=== PATIENT | male | born 1960 | race Caucasian/White ===

== ENCOUNTER 2025-05-06 07:27 | Day surgery (SDC) | payer BC ==
[2025-05-05 11:28] LABS: IMMATURE GRANULOCYTE ABSOLUTE 0.02 K/uL (0-1); NUCLEATED RED BLOOD CELLS 0.0 % (0.0-0.19); PLATELET COUNT (AUTO) 234 K/uL (130-400); RED BLOOD CELL COUNT(AUTO) 4.70 MIL/uL (4.50-6.20); RED CELL DISTRIBUTION WIDTH 12.1 % (11.0-15.5); WHITE BLOOD COUNT (AUTO) 9.0 K/uL (4.8-10.8)
[2025-05-05 11:36] LABS: CREATININE 1.0 mg/dL (0.5-1.3); GLOMERULAR FILTR. RATE CALC 85.0 mL/min (>90); GLUCOSE,RANDOM 160.0 mg/dL (70-105); SODIUM SERUM 141.0 mmol/L (136-145); UREA NITROGEN, BLOOD 19.0 mg/dL (7-18)
[2025-05-05 11:38] VITALS: BP 133/81; PULSE 88; RESP 18; TEMP 98.2
[2025-05-05 11:40] LABS: INR 0.97 (0.85-1.15)
[2025-05-06] VITALS (7 sets, daily range): BP systolic 103–121; BP diastolic 69–81; PULSE 70–80; RESP 12–16; TEMP 97.3–97.5
[~2025-05-06] VITALS: Ht 185.4 cm; Wt 90.5 kg
[~2025-05-06 07:27] MED LIST: AEC81 PO; ATOR40TA71 PO
[2025-05-06] MEDS ORDERED: MIDAZOLAM HCL 1 MG/ML 2ML VIAL IVP ONE ×2 (07:30)
[2025-05-06] MEDS: LIDOCAINE HCL 2% VISCOUS 15 ML UDCUP PO ONE (09:05)
--- NOTE | 2025-05-06 09:22 | NUR ---
BUBBLE STUDY DONE
--- NOTE | 2025-05-06 09:23 | NUR ---
2ND BUBBLE STUDY DONE PER DR. ELENITA PAYNE NAD
--- NOTE | 2025-05-06 09:25 | NUR ---
CHEYENNE FINISHED AT THIS TIME VSS NAD
[2025-05-06] MEDS: 0.9%NACL 1000ML 1,000 ML IV SCH (09:39)
[2025-05-06] MEDS: MIDAZOLAM HCL 1 MG/ML 2ML VIAL IVP ONE ×3 (09:40→09:41)
--- NOTE | 2025-05-06 10:35 | NUR ---
PT TAKEN OUT VIA WHEELCHAIR VERBAL AND WRITTEN DISCHARGE INSTRUCTIONS GIVEN TO BOTH OUTSIDE AT [facility]. DRIVING HOME
--- NOTE | 2025-05-07 12:02 | HMCSR ---
APPROVED REPORT EXAM: Transesophageal echocardiogram with color flow Doppler. INDICATION ICD: G45.9 Transient cerebral ischemic attack, unspecified Reason For Test : Rule out Intracardiac Thrombus. PROCEDURE After obtaining informed consent, patient underwent transesophageal echo in the Day Patient Room 15. 15 mL 2% Viscous Lidocaine was given as a topical anesthetic prior to the administration of the consc ious sedation. Type of Sedation: Conscious Sedation Sedation was administered by Raúl Soliman RN. Sedation was achieved with refer to chart intravenously. Transesophageal probe was inserted and advanced into esophagus without difficulty by Dr. Johnson. Echo enhancement indication: R/O Septal defect. Echo enhancement agent administered: Agitated Saline. CHEYEN[place] was performed and images were obtained, probe was removed without complications. Throughout the procedure, the blood pressure, pulse oximetry, cardiac rhythm, and rate were monitored . The patient tolerated the procedure without adverse effects. Recovery from conscious sedation was une ventful and vital signs were stable. Left Ventricle The left ventricle is grossly normal size. There is normal LV segmental wall motion. There is normal left ventricular wall thickness. The left ventricle is normal in structure and function. The Ejection Fraction is >55%. No left ventricle thrombus noted on this study. Right Ventricle The right ventricle is normal size. Atria No thrombus is visualized in the left atrium or appendage. Injection of bubbles documented an interat rial shunt. Atrial septal aneurysm is present. Aortic Valve The aortic valve is normal in structure. Trace aortic regurgitation. There is no aortic valvular sten osis. Mitral Valve The mitral valve is normal in structure. Mitral regurgitation is trace. There is no mitral valve sten osis. Tricuspid Valve The tricuspid valve is normal in structure and function. Great Vessels The aortic root is normal in size. Pericardium No pericardial effusion. Conclusion The left ventricle is grossly normal size. There is normal left ventricular wall thickness. The left ventricle is normal in structure and function. The Ejection Fraction is >55%. No thrombus is visualized in the left atrial appendage. Injection of bubbles documented an interatrial shunt. Atrial septal aneurysm is present. No thrombus is visualized in the left atrial appendage. The aortic valve is normal in structure. Trace aortic regurgitation. There is no aortic valvular stenosis. The mitral valve is normal in structure. Mitral regurgitation is trace. There is no mitral valve stenosis. The aortic root is normal in size. No pericardial effusion.
== END 2025-05-06 10:35 | disposition home or self-care (01) ==
LOC: DAH 07:27
PROVIDERS: ATTEND Internal Medicine Cardiovascular Disease
DX: G45.9 Transient cerebral ischemic attack, unspecified (principal); E78.5 Hyperlipidemia, unspecified; I34.0 Nonrheumatic mitral (valve) insufficiency; I25.3 Aneurysm of heart; Z79.82 Long term (current) use of aspirin; Z79.899 Other long term (current) drug therapy
CPT/HCPCS: 80048; 85025; 85610; 85730; 36415; 99152; 93325; 93312; J3010; J7030; J2250 ×2; A4615; A4215; A4223 ×3; A4657; A7002; A4222; A4221; A4663; A4216; A4606; G0500

== ENCOUNTER → 2025-08-06 | Outpatient (CLI) | payer BC ==
[2025-08-06 21:58] VITALS: PULSE 72; RESP 8
[2025-08-06 22:30] VITALS: PULSE 68; RESP 4
[2025-08-06 23:00] VITALS: PULSE 64; RESP 12
[2025-08-06 23:30] VITALS: PULSE 62; RESP 2
[2025-08-07] VITALS (9 sets, daily range): PULSE 62–68; RESP 2–10
== END | disposition home or self-care (01) ==
LOC: SLP 19:49
PROVIDERS: ATTEND Internal Medicine Cardiovascular Disease
DX: G47.33 Obstructive sleep apnea (adult) (pediatric) (principal)
CPT/HCPCS: 95810

== ENCOUNTER → 2025-08-13 | Outpatient (CLI) | payer BC ==
[2025-08-13 21:52] VITALS: PULSE 82; RESP 8
[2025-08-13 22:30] VITALS: PULSE 70; RESP 8
[2025-08-13 23:00] VITALS: PULSE 74; RESP 6
[2025-08-13 23:30] VITALS: PULSE 70; RESP 12
[2025-08-14] VITALS (9 sets, daily range): PULSE 64–72; RESP 6–30
== END | disposition home or self-care (01) ==
LOC: SLP 19:49
PROVIDERS: ATTEND Internal Medicine Cardiovascular Disease
DX: G47.33 Obstructive sleep apnea (adult) (pediatric) (principal); R09.02 Hypoxemia; R06.83 Snoring
CPT/HCPCS: 95811